=== PATIENT | female | born 1970 | race Hispanic/Latino ===

== ENCOUNTER → 2017-09-17 | Outpatient (CLI) | payer OTHER ==
[~2017-09-17] MED LIST: AMITRIPTYLINE H25 MG PO; DEXAMETHASONE4 MG PO; GADOBENATE DIMEGLUMINE 1 ML IV ONE; HEMOCYTE-F TAB1 EACH PO; ULTRAM 50MG50 MG PO; XANAX1 MG PO
--- NOTE | 2017-09-18 14:58 | Diagnostic Imaging Report ---
EXAMINATION: MRI of the brain with and without contrast HISTORY: Headaches, left-sided facial weakness, evaluate for bowel sulci COMPARISON: Brain MRI and 07/30/2015 TECHNIQUE: Pre-contrast: Sagittal T2; axial T1-IR, T2, MPGR, DWI, FLAIR; Post-contrast: axial and coronal T1. Intravenous contrast: 13 mL of Gadavist. IMAGE QUALITY: Adequate. FINDINGS: CPA cisterns/IACs: No mass or abnormal enhancement. Particularly no abnormal enhancement is seen in the visualized segments of the facial nerves in this brain MRI, particularly no abnormal enhancement of the intracanalicular segments, decreasing the possibility of [place] palsy based on images, however this is a clinical diagnosis. Parenchyma: 1. Unchanged nonspecific moderate confluent supratentorial white matter chronic microvascular ischemic changes. 2. No mass or hemorrhage. No acute or chronic vascular insult. No abnormal enhancement Skull: No abnormal signal intensity or enhancement. Major arteries: Expected flow voids present. Dural sinuses: Expected flow voids present. Ventricles: No hydrocephalus or displacement. Subarachnoid spaces: No abnormal signal intensity or enhancement. Brain volume: Normal for age. Foramen magnum: No mass, Chiari malformation, or basilar invagination. Sella: No gross mass. Paranasal/mastoid sinuses: Unremarkable. IMPRESSION: 1. Unchanged moderate confluent chronic microvascular ischemic changes compared to MRI and 07/30/2015. 2. No abnormal enhancement of the visualized segments of the facial nerves. Signed by: Dr. Lena Mclain M.D. on 09/18/2017 2:54 PM
== END ==
LOC: MRI 16:42
PROVIDERS: ATTEND Physician Assistant
DX: G04.81 Other encephalitis and encephalomyelitis (principal); I63.9 Cerebral infarction, unspecified; G51.0 Bell's palsy
CPT/HCPCS: 70553